=== PATIENT | male | born 1975 | race Caucasian/White ===

== ENCOUNTER 2024-03-07 13:44 | Emergency (ER) | payer BC ==
[2024-03-07] MEDS: Diphtheria,Pertussis(Acell),Tetanus Vaccine 0.5 ML Syringe IM ONE (14:24)
== END 2024-03-07 14:37 | disposition other institution (70) ==
LOC: CC.ED 13:44
DX: S92.421B Displaced fracture of distal phalanx of right great toe, initial encounter for open fracture (principal); Z88.0 Allergy status to penicillin; X58.XXXA Exposure to other specified factors, initial encounter
CPT/HCPCS: 73660-TA; 90471; 90715; 99284; 99284-25